=== PATIENT | female | born 1955 | race Caucasian/White ===

== ENCOUNTER → 2019-03-31 16:11 | Outpatient (BNVA) | payer MEDICARE, OTHER, SELFPAY | PROVIDERS: Visit Provider Internal Medicine | DX: E03.9 Hypothyroidism, unspecified (principal); Z00.00 Encounter for general adult medical examination without abnormal findings; K75.81 Nonalcoholic steatohepatitis (NASH); Z12.11 Encounter for screening for malignant neoplasm of colon; G25.81 Restless legs syndrome; E78.5 Hyperlipidemia, unspecified | CPT/HCPCS: 80053; 80061; 83036; 83540; 83550; 84443; 85025 ==

== ENCOUNTER → 2019-04-01 13:26 | Outpatient (BNVA) | payer MEDICARE, OTHER, SELFPAY | PROVIDERS: Visit Provider Internal Medicine | DX: R94.5 Abnormal results of liver function studies (principal); E03.9 Hypothyroidism, unspecified; Z00.00 Encounter for general adult medical examination without abnormal findings; K75.81 Nonalcoholic steatohepatitis (NASH); Z12.11 Encounter for screening for malignant neoplasm of colon | CPT/HCPCS: 86705; 86706; 86709; 86803; 87340 ==

== ENCOUNTER 2019-04-10 07:56 | Day surgery (SDC) | payer MEDICARE, OTHER, SELFPAY ==
[2019-04-09 09:17] VITALS: BMI 34.4
[2019-04-10 08:12] VITALS: BP 127/89; PULSE 63; RESP 18; TEMP 36.6; O2SAT 98
[2019-04-10] MEDS: sodium chloride 0.9% 1,000 ML 30 ML (08:22)
--- NOTE | 2019-04-10 08:50 | ANES.PREANE2 ---
Pre-Anesthetic Assessment Pre-Anesthetic Assessment: Height/Weight: Height 1.75 m Weight 105.687 kg Temp Pulse Resp BP Pulse Ox 97.8 F 63 18 127/89 98 04/10/19 08:12 04/10/19 08:12 04/10/19 08:12 04/10/19 08:12 04/10/19 08:12 Preop Diagnosis: sc Proposed Procedure: Operation Date: 04/10/19 09:30 Proposed Procedures p Colonoscopy(Not Applicable) - Jim Duran MD Last intake: Intake Last Solid Date 04/09/19 Last Solid Time 19:00 Social: Social History: Alcohol and No tobacco Exam: Pre-Anes Outpt Exam: alert, oriented x 3, clear to auscultation bilaterally and regular rate & rhythm Airway: Submandibular: WNL Cervical ROM: WNL MP: 2 Dentition: Full History/ROS: No significant history except as noted and No significant complaints Pulmonary: Pulmonary: None reported CV/HEM: CV/HEM: None reported : : None reported Hepatic: Hepatic: None reported GI: GI: None reported Metabolic: Metabolic: None reported Musc/skel: Comments: restless leg syndrome Neuropsych: Neuropsych: None reported Anesthetic Plan: ASA status: 2 Anesthesia: Anesthesia Evaluation and MAC Risk of > 500 ml blood loss (7ml/kg in children): No PFSH Anesthesia PFSH: Surgical History (Updated 03/31/19 @ 15:12 by Jim Duran MD) History of cholecystectomy History of hand surgery History of knee replacement procedure of right knee History of tubal ligation Social History (Updated 03/31/19 @ 14:39 by BLANCA Kramer) Smoking and tobacco status: never smoked Alcohol intake: never Household members: none Housing: House Marital status: / History of recent travel: No Data Anesthesia Cardiac Studies: No Data to Display
--- NOTE | 2019-04-10 09:14 | W.PM.OPSUD ---
Surgery/Procedure H&P Update DATE OF PROCEDURE: April 10, 2019 DATE H&P PERFORMED: 03/31/19 PREOP DIAGNOSIS: sc PLANNED PROCEDURE: Operation Date: 04/10/19 09:30 Proposed Procedures p Colonoscopy(Not Applicable) - Jim Duran MD
[2019-04-10 10:06] VITALS: BP 130/79; PULSE 65; RESP 18; TEMP 36.2; O2SAT 97
[2019-04-10 10:13] VITALS: BP 96/69; PULSE 64; RESP 18; O2SAT 97
== END 2019-04-10 10:25 | disposition home or self-care (01) ==
PROVIDERS: PCP Internal Medicine; Visit Provider Internal Medicine
PROC: 0DJD8ZZ Inspection of Lower Intestinal Tract, Via Natural or Artificial Opening Endoscopic (ICD-10-PCS; CPT 45378; principal; 2019-04-10 09:30)
DX: Z12.11 Encounter for screening for malignant neoplasm of colon (principal); K57.30 Diverticulosis of large intestine without perforation or abscess without bleeding; G25.81 Restless legs syndrome
CPT/HCPCS: 12345; 45378; J2704; J7030

== ENCOUNTER 2019-04-22 09:18 | Outpatient (CLI) | payer MEDICARE, OTHER, SELFPAY ==
--- NOTE | 2019-04-22 09:30 | US_ITS ---
WS: [id number] ABDOMINAL ULTRASOUND LIMITED REASON FOR VISIT: fatty liver TECHNIQUE: Grayscale and Doppler ultrasound examination of the abdomen. FINDINGS: Pancreas: Within normal limits. Abdominal aorta and IVC: Within normal limits. Liver: Liver measures 19.3 cm in length. Fatty infiltration the liver. Normal hepatopedal portal circ ulation.. Gallbladder: Status post cholecystectomy. Common bile duct measured 0.62 cm. Right kidney: Right kidney measures 11.9 cm x 5.2 cm x 5.1 cm. Right kidney cortex measures 1.0 cm. No hydronephrosis or stones. US/US liver [id number] IMPRESSION: Enlarged liver with fatty infiltration.
== END 2019-04-22 09:19 | disposition home or self-care (01) ==
LOC: US 09:20
PROVIDERS: Family Provider Internal Medicine; PCP Internal Medicine; Visit Provider Internal Medicine
DX: K76.0 Fatty (change of) liver, not elsewhere classified (principal); R94.5 Abnormal results of liver function studies
CPT/HCPCS: 76705

== ENCOUNTER 2019-08-17 08:30 | Outpatient (CLI) | payer MEDICARE, OTHER, SELFPAY ==
--- NOTE | 2019-08-17 08:30 | MM_ITS ---
WS: [id number] BILATERAL SCREENING DIGITAL MAMMOGRAM WITH CAD HISTORY: Screening. COMPARISON: 12/25/2013 Bilateral CC and MLO views submitted. Computer aided detection analyzed. Breast composition: There are scattered areas of fibroglandular density. No suspicious masses, microc alcifications or architectural distortion. MM/[place] [id number] IMPRESSION: BI-RADS: 1-Negative FOLLOW UP: 1 Year Follow-up
== END 2019-08-17 08:31 | disposition home or self-care (01) ==
LOC: RADSHAW 08:31
PROVIDERS: PCP Internal Medicine; Visit Provider Internal Medicine
DX: Z12.31 Encounter for screening mammogram for malignant neoplasm of breast (principal)
CPT/HCPCS: 77067

== ENCOUNTER → 2020-04-18 16:43 | Outpatient (BNVA) | payer MEDICARE, OTHER, SELFPAY | PROVIDERS: PCP Internal Medicine; Visit Provider Internal Medicine | DX: K75.81 Nonalcoholic steatohepatitis (NASH) (principal); R73.09 Other abnormal glucose; E78.01 Familial hypercholesterolemia; G25.81 Restless legs syndrome | CPT/HCPCS: 80053; 80061; 83036; 84443; 85025 ==

== ENCOUNTER → 2020-10-19 16:17 | Outpatient (BNVA) | payer MEDICARE, OTHER, SELFPAY | PROVIDERS: PCP Internal Medicine; Visit Provider Internal Medicine | DX: E78.01 Familial hypercholesterolemia (principal); R73.09 Other abnormal glucose; K75.81 Nonalcoholic steatohepatitis (NASH) | CPT/HCPCS: 80053; 80061 ==

== ENCOUNTER 2020-11-21 10:53 | Outpatient (CLI) | payer MEDICARE, OTHER, SELFPAY ==
--- NOTE | 2020-11-21 11:00 | MM_ITS ---
WS: [id number] Bilateral screening digital mammogram, 11/21/2020 Clinical Data: SCREENING Comparison: 08/17/2019, 12/25/2013. Findings: The breast parenchymal pattern shows fat replacement. There are mole markers on both breasts. There a re small lymph nodes in both axilla. MM/[id number] Impression: 1. Negative bilateral mammogram unchanged. 2. Recommend annual screening mammograms. BIRADS: 1-Negative FOLLOW UP: 1 Year Follow-up The CAD grade checker was used.
== END 2020-11-21 10:54 | disposition home or self-care (01) ==
LOC: RADSHAW 10:56
PROVIDERS: PCP Internal Medicine; Visit Provider Internal Medicine
DX: Z12.31 Encounter for screening mammogram for malignant neoplasm of breast (principal)
CPT/HCPCS: 77067

== ENCOUNTER → 2021-05-09 15:58 | Outpatient (BNVA) | payer MEDICARE, OTHER, SELFPAY | PROVIDERS: PCP Internal Medicine; Visit Provider Internal Medicine | DX: R73.09 Other abnormal glucose (principal); K75.81 Nonalcoholic steatohepatitis (NASH) | CPT/HCPCS: 80053; 83036 ==

== ENCOUNTER → 2022-12-03 10:29 | Outpatient (BNVA) | payer MEDICARE, OTHER, SELFPAY | PROVIDERS: PCP Internal Medicine; Referring Provider Internal Medicine; Visit Provider Nurse Practitioner Family | DX: Z85.828 Personal history of other malignant neoplasm of skin (principal); L57.0 Actinic keratosis; L82.1 Other seborrheic keratosis; L57.8 Other skin changes due to chronic exposure to nonionizing radiation; D22.5 Melanocytic nevi of trunk; L85.3 Xerosis cutis | CPT/HCPCS: 17000; 99203 ==

== ENCOUNTER → 2023-02-26 10:19 | Outpatient (BNVA) | payer MEDICARE, OTHER, SELFPAY | PROVIDERS: PCP Internal Medicine; Visit Provider Nurse Practitioner Family | DX: Z85.828 Personal history of other malignant neoplasm of skin (principal); L57.0 Actinic keratosis; L82.1 Other seborrheic keratosis; L57.8 Other skin changes due to chronic exposure to nonionizing radiation; D22.5 Melanocytic nevi of trunk; L85.3 Xerosis cutis | CPT/HCPCS: 17000; 99213 ==

== ENCOUNTER 2023-07-10 10:39 | Outpatient (CLI) | payer MEDICARE, OTHER, SELFPAY ==
--- NOTE | 2023-07-10 10:51 | MR_ITS ---
WS: [id number] MRI NECK WITH CONTRAST TECHNIQUE: Noncontrast axial T1, axial T2 FSE fat sat, coronal T2 fat sat, coronal T1, coronal T1 fat sat, sagittal T2 fat sat, plus contrast enhanced coronal, sagittal, and axial T1 fat sat images obta ined. CLINICAL INFORMATION: DIPLOPIA COMPARISON: MRI 2013 FINDINGS: No evidence of restricted diffusion to suggest acute ischemia. Minimal small vessel changes. Mild par enchymal volume loss. Normal posterior fossa. Normal vascular flow voids at the skull base. No extra- axial fluid collections. No evidence of mass or mass effect. Paranasal sinuses and mastoid air cells are well aerated. Mild mucosal thickening in the mastoid tips. Normal posterior nasopharynx. Normal optic chiasm and pituitary infundibulum. No evidence of optic nerve edema or optic neuritis. N o abnormal intracranial enhancement. Normal dural venous sinuses. Proximal 7th and 8th cranial nerves appear normal. Normal trigeminal nerve root entry zones. No evidence of sellar or suprasellar mass. MR/MR orbit face neck wo/w* [id number] IMPRESSION: 1. No evidence of restricted diffusion to suggest acute ischemia. 2. Mild small vessel changes. Mild parenchymal volume loss. 3. Normal optic chiasm and pituitary infundibulum. 4. No evidence of optic nerve edema or optic neuritis. 5. No evidence of intraconal or globe mass. 6. Normal visualized rectus muscles. 7. No other suspicious findings.
[2023-07-10] MEDS: gadobenate dimeglumine 20 mL vial IV (11:33)
== END 2023-07-10 10:40 | disposition home or self-care (01) ==
LOC: RAD 10:40
PROVIDERS: PCP Internal Medicine; Visit Provider Ophthalmology
DX: H53.2 Diplopia (principal)
CPT/HCPCS: 70543; A9577

== ENCOUNTER → 2023-08-27 10:35 | Outpatient (BNVA) | payer MEDICARE, OTHER, SELFPAY | PROVIDERS: PCP Internal Medicine; Visit Provider Nurse Practitioner Family | DX: Z85.828 Personal history of other malignant neoplasm of skin (principal); L57.8 Other skin changes due to chronic exposure to nonionizing radiation; D22.5 Melanocytic nevi of trunk; L57.0 Actinic keratosis; L82.1 Other seborrheic keratosis | CPT/HCPCS: 17000; 99213 ==

== ENCOUNTER 2023-12-03 11:32 | Outpatient (CLI) | payer MEDICARE, OTHER, SELFPAY ==
--- NOTE | 2023-12-03 11:30 | MM_ITS ---
WS: [id number] Bilateral screening 3D tomosynthesis digital mammogram, 12/03/2023 11:40 AM Clinical Data: sCREENING Comparison: 11/21/2020, 08/17/2019, 12/25/2013 Findings: No spiculated masses or clustered calcifications are seen. There are no secondary signs of carcinoma . MM/MM scr BI tomosynthesis [id number] Impression: Negative bilateral mammogram unchanged. Recommend annual screening mammograms. BIRADS: 1 - Negative. FOLLOW UP: 1 Year Follow-up DENSITY: The breasts are almost entirely fatty. The CAD receiving checker was used
== END 2023-12-03 11:33 | disposition home or self-care (01) ==
PROVIDERS: PCP Internal Medicine; Visit Provider Internal Medicine
DX: Z12.31 Encounter for screening mammogram for malignant neoplasm of breast (principal)
CPT/HCPCS: 77063; 77067

== ENCOUNTER → 2023-12-04 10:49 | Outpatient (BNVA) | payer MEDICARE, OTHER, SELFPAY | PROVIDERS: PCP Internal Medicine; Visit Provider Nurse Practitioner Family | DX: L57.0 Actinic keratosis (principal); S50.912A Unspecified superficial injury of left forearm, initial encounter; X58.XXXA Exposure to other specified factors, initial encounter; L82.1 Other seborrheic keratosis; L57.8 Other skin changes due to chronic exposure to nonionizing radiation; D69.2 Other nonthrombocytopenic purpura; Z85.828 Personal history of other malignant neoplasm of skin | CPT/HCPCS: 17000; 99213 ==

== ENCOUNTER → 2024-06-23 11:08 | Outpatient (BNVA) | payer MEDICARE, OTHER, SELFPAY | PROVIDERS: PCP Internal Medicine; Visit Provider Nurse Practitioner Family | DX: L71.8 Other rosacea (principal); D69.2 Other nonthrombocytopenic purpura; D18.01 Hemangioma of skin and subcutaneous tissue; L57.8 Other skin changes due to chronic exposure to nonionizing radiation; X32.XXXA Exposure to sunlight, initial encounter; L81.4 Other melanin hyperpigmentation; L82.1 Other seborrheic keratosis; Z08 Encounter for follow-up examination after completed treatment for malignant neoplasm; Z85.828 Personal history of other malignant neoplasm of skin; L82.0 Inflamed seborrheic keratosis; L29.89 Other pruritus; R20.9 Unspecified disturbances of skin sensation | CPT/HCPCS: 17000; 17110; 99214 ==

== ENCOUNTER → 2024-12-03 10:38 | Outpatient (BNVA) | payer MEDICARE, OTHER, SELFPAY | PROVIDERS: PCP Internal Medicine; Visit Provider Nurse Practitioner Family | DX: L71.8 Other rosacea (principal); D69.2 Other nonthrombocytopenic purpura; Z08 Encounter for follow-up examination after completed treatment for malignant neoplasm; Z85.828 Personal history of other malignant neoplasm of skin | CPT/HCPCS: 99214 ==

== ENCOUNTER 2025-01-06 10:38 | Outpatient (CLI) | payer MEDICARE, OTHER, SELFPAY ==
--- NOTE | 2025-01-06 10:40 | MM_ITS ---
WS: [id number] BILATERAL SCREENING DIGITAL TOMOSYNTHESIS MAMMOGRAM WITH CAD HISTORY: SCREENING COMPARISON: 12/03/2023, 11/21/2020 Bilateral CC and MLO views with tomosynthesis and synthetic mammography submitted. Computer aided detection analyzed. Breast composition: There are scattered areas of fibroglandular density. No suspicious masses, microcalcifications or architectural distortion. Benign calcifications. MM/MM scr BI tomosynthesis [id number] IMPRESSION: BI-RADS: 2 - Benign. FOLLOW UP: 1 Year Follow-up
== END 2025-01-06 10:39 | disposition home or self-care (01) ==
LOC: MOBLMAM 10:39
PROVIDERS: PCP Internal Medicine; Visit Provider Internal Medicine
DX: Z12.31 Encounter for screening mammogram for malignant neoplasm of breast (principal); R92.323 Mammographic fibroglandular density, bilateral breasts; R92.1 Mammographic calcification found on diagnostic imaging of breast
CPT/HCPCS: 77063; 77067